=== PATIENT | male | born 1945 | race Caucasian/White ===

== ENCOUNTER 2017-03-14 00:46 | Emergency (ER) | payer OTHER ==
[2017-03-14 00:57] VITALS: BP 109/51; BMI 23.7
--- NOTE | 2017-03-14 01:58 | DR.GENAD ---
HPI - PCP Primary Care Physician: Nico - Complaint/Symptoms Chief Complaint:: "The swelling comes and goes. Usually when he goes to bed it will go away by the next day. This time it hasn't went down though. He also had a fluid pocket around his penis earlier. He hasn't peed all day as well. We took a half a lasix but it didn't seem to help." Via Self Treatment fo Chief Complaint: 10 of lasix - states that any more will drop his blood pressure too much. - Nurses notes reviewed Nurses Notes Review: Yes - Source History Provided: Patient - Mode of Arrival Mode of Arrival: Ambulatory - Timing Onset of Chief Complaint: 03/13/17 Came on: Gradually - Duration Duration: Constant How lon Duration: Days - Location Location: swelling of lower legs - Severity Severity: Moderate - Modifying Factors Worsens:: nothing Improves:: nothing PMH - PMH Past Medical History: Yes Past Medical History: Arthritis, CHF, COPD, Hypertension, [place] Past Surgical History: Yes Surgical History: Ortho Surgery, Other Past Surgical History Comment: Neck, both shoulders. Heart surgery - Family History History of Family Medical Conditions: Yes Family Medical History: Coronary Artery Disease - Social History Does patient currently use any type of tobacco product: No Have you used tobacco products in the last 12 months: No Type of Tobacco Use: None Does any household member use tobacco: No Alcohol Use: None Do you use any recreational Drugs:: No Lives With: Spouse Lives Where: Home - infectious screening In the last 2 months have you had wt loss of >10#?: NO Have you had fever, night sweats or hemotysis?: No Have you traveled outside the country in the last 6 months?: No Isolation: Standard ROS - Review of Systems Constitutional: No Symptoms Reported, Loss of Appetite Eyes: No Symptoms Reported ENTM: No Symptoms Reported Respiratoy: No Symptoms Reported Cardiovascular: No Symptoms Reported, Edema, Palpitations Gastrointestinal/Abdominal: No Symptoms Reported. negative: See HPI, Abdominal Pain, Constipation, Diarrhea, Nausea, Vomiting, Food Intolerance, Other Genitourinary: No Symptoms Reported Neurological: No Symptoms Reported, Weakness Musculoskeletal: No Symptoms Reported Integumentary: No Symptoms Reported Hematologic/Lymphatic: No Symptoms Reported Endocrine: No Symptoms Reported Psychiatric: No Symptoms Reported PE - Vital Signs Vitals: Temperature 97.7 F Pulse Rate 121 Respiratory Rate 18 Blood Pressure [Right Arm] 139/73 Blood Pressure 109/51 O2 Sat by Pulse Oximetry 89 - General Limitations: No Limitations General Appearance: Alert, In No Apparent Distress, In Distress (mild) - Head Head Exam: Normal Inspection, Atraumatic, Normocephalic - Eyes Eye exam: Normal Appearance, PERRL, EOMI. negative: Scleral Icterus, Conjunctival Injection, Nystagmus, Miosis, Mydrasis, Periorbital Swelling, Periorbital Tenderness, Other - ENT ENT Exam: Normal Exam, Normal Oropharynx, Normal External Ear Exam, Mucous Membranes Moist, TM's Normal Bilaterally External Ear Exam: Normal External Inspection TM/Canal Exam: Bilateral Normal Nose Exam: Normal Nose Exam Mouth Exam: Normal Inspection Throat Exam: Normal Inspection - Neck Neck Exam: Normal Inspection, Full ROM, Trachea Midline. negative: Tenderness, Meningismus, Lymphadenopathy, Thyromegaly, Other - Chest Chest Inspection: Normal Inspection, Symmetric Chest Wall Rise - Respiratory Respiratory Exam: Normal Lung Sounds Bilat Respiratory Exam: Bilateral Clear to Auscultation, Bilateral Decreased Breath Sounds - Cardiovascular Cardiovascular Exam: Regular Rate, Normal Rhythm, Irregular Rhythm, Normal Heart Sounds, Systolic Murmur - Abdominal Exam Abdominal Exam: Normal Inspection, Normal Bowel Sounds, Soft. negative: Distention, Tenderness, Guarding, Rebound, Rigidity, Dimnished Bowel Sounds, Hyperactive Bowel Sounds, Hypoactive Bowel Sounds, Organomegaly, Trauma, Incision, Ascites, Mass, Bruit, Pulsatile Mass, Hernia, Other Abdominal Tenderness: negative: RUQ, RLQ, LUQ, LLQ, Epigastrium, Suprapubic, Diffuse, Mild, Moderate, Severe, Other - Extremities Extremities Exam: Normal Inspection, Full ROM, Normal Capillary Refill, Edema (2 -3+ dependent edema). negative: Tenderness, Joint Swelling, Calf Tenderness, Other - Back Back Exam: Normal Inspection, Full ROM. negative: Tenderness, (R) CVA Tenderness, (L) CVA Tenderness, Muscle Spasm, Paraspinal Tenderness, Vertebral Tenderness, Rashes, (R) Sciatic Notch Tenderness, (L) Sciatic Notch Tendern, (R ) Straight Leg Raise, (L) Straight Leg Raise, Other - Neurologic Neurological Exam: Alert, Oriented X3, CN II-XII Intact, Normal Gait, Reflexes Normal - Psychiatric Psychiatric Exam: Normal Affect, Normal Mood. negative: Depressed, Agitated, Anxious, Flat Affect, Manic, Homicidal Ideation, Suicidal Ideation, Other - Skin Skin Exam: Warm, Dry, Intact, Normal Color Course - Reevaluation 1st: Improved ( and patient states they want to go home and continue Lasix they have and elevate feet. Daughter also wants to try home treatment. Refuse hospital admission presently.) - Education/Counseling Education/Counseling: Patient, Family Educated On: Treatment, Diagnosis, Prognosis, Needs for Follow Up (Patient and family decline hospital admission and states they want to go home) ROR - Labs Reviewed Laboratory Results Reviewed?: Yes (all labs and x-ray results reviewed and discussed with family and patient) Result Diagrams: 03/14/17 02:04 03/14/17 02:04 Laboratory: WBC 3.5 X10^3/uL (3.6-10.0) L 03/14/17 02:04 RBC 4.39 X10^6/uL (4.7-6.0) L 03/14/17 02:04 Hgb 13.7 g/dL (13.5-18.0) 03/14/17 02:04 Hct 41.1 % (42.0-54.0) L 03/14/17 02:04 MCV 93.6 fL (80.0-100.0) 03/14/17 02:04 MCH 31.1 pg (27.0-34.0) 03/14/17 02:04 MCHC 33.3 g/dL (33.0-35.0) 03/14/17 02:04 RDW 17.1 % (11.6-16.5) H 03/14/17 02:04 Plt Count 88 X10^3/uL (150.0-450.0) L 03/14/17 02:04 MPV 9.9 fL (7.4-11.0) 03/14/17 02:04 Neut % 58.9 % (42.0-75.0) 03/14/17 02:04 Lymph % 25.3 % (21.0-51.0) 03/14/17 02:04 H[place]go % 12.2 % (0.0-13.0) 03/14/17 02:04 Eos % 3.5 % (0.9-2.9) H 03/14/17 02:04 Baso % 0.1 % (0.2-1.0) L 03/14/17 02:04 Neut # 2.1 x10^3/uL (2.2-4.8) L 03/14/17 02:04 Lymph # 0.9 X10^3/uL (1.3-2.9) L 03/14/17 02:04 H[place]go # 0.4 x10^3/uL (0.3-0.8) 03/14/17 02:04 Eos # 0.1 x10^3/uL (0.0-0.2) 03/14/17 02:04 Baso # 0.0 X10^3/uL (0.0-0.1) 03/14/17 02:04 Absolute Nucleated RBC 0.1 /100WBC 03/14/17 02:04 INR Target Range - 03/14/17 02:04 INR 2.37 (0.8-1.3) H 03/14/17 02:04 PTT 42.1 SECONDS (22.9-36.5) H 03/14/17 02:04 PTT Comment - 03/14/17 02:04 Sodium 138 mmol/L (136-145) 03/14/17 02:04 Corrected Sodium TNP 03/14/17 02:04 Potassium 4.0 mmol/L (3.5-5.1) 03/14/17 02:04 Chloride 100 mmol/L (98-107) 03/14/17 02:04 Carbon Dioxide 39.7 mmol/L (21-32) H 03/14/17 02:04 BUN 8 mg/dL (7-18) 03/14/17 02:04 Creatinine 1.09 mg/dL (0.70-1.30) 03/14/17 02:04 Est GFR (MDRD) Af Amer > 60 (>60) 03/14/17 02:04 Est GFR (MDRD) Non-Af > 60 (>60) 03/14/17 02:04 Glucose 96 mg/dL (65-99) 03/14/17 02:04 Calcium 8.6 mg/dL (8.5-10.1) 03/14/17 02:04 Corrected Calcium 9.2 mg/dL (8.5-10.1) 03/14/17 02:04 Magnesium 1.8 mg/dL (1.7-2.9) 03/14/17 02:04 Total Bilirubin 1.20 mg/dL (0.2-1.0) H 03/14/17 02:04 AST 18 Units/L (15-37) 03/14/17 02:04 ALT 12 Units/L (12-78) 03/14/17 02:04 Alkaline Phosphatase 79 Units/L (46-116) 03/14/17 02:04 Creatine Kinase 67 Units/L (39-308) 03/14/17 02:04 CK-MB (CK-2) < 1.0 ng/mL (0-4.0) 03/14/17 02:04 CK/CKMB % Calc 1.5 % (<4) 03/14/17 02:04 Troponin I 0.06 ng/mL (0-1.5) 03/14/17 02:04 B-Natriuretic Peptide 202 pg/mL (0-79) H 03/14/17 02:04 Total Protein 7.2 g/dL (6.4-8.2) 03/14/17 02:04 Albumin 3.3 g/dL (3.4-5.0) L 03/14/17 02:04 Globulin 3.9 g/dL (2.5-4.5) 03/14/17 02:04 Albumin/Globulin Ratio 0.8 Ratio (1.1-2.1) L 03/14/17 02:04 - XRAY XRAY Interpreted by: Radiologist (Chest: Findings of congestive heart failure. There is cardiomegaly, central vascular congestion and interstitial edema) - Diagnosis Discharge Problem: Pulmonary edema, History of chronic atrial fibrillation Congestive heart failure (CHF) Qualifiers: Congestive heart failure type: unspecified congestive heart failure type - Discharge Plan Disposition: 01 HOME, SELF-CARE Condition: Stable - Follow ups/Referrals Follow ups/Referrals: SOPHIA PATTEN [Primary Care Provider] - 3 days - Instructions Instructions: Heart Failure, [id number], Atrial Fibrillation, [id number], Pulmonary Edema, [id number]
[2017-03-14] MEDS ORDERED: ZAROXOYLN PO STA (01:59)
[2017-03-14 02:18] LABS: BASOPHILS % (AUTO) 0.1 % (0.2-1.0); EOSINOPHILS # (AUTO) 0.1 x10^3/uL (0.0-0.2); EOSINOPHILS % (AUTO) 3.5 % (0.9-2.9); HEMATOCRIT 41.1 % (42.0-54.0); HEMOGLOBIN 13.7 g/dL (13.5-18.0); LYMPHOCYTES # (AUTO) 0.9 X10^3/uL (1.3-2.9); LYMPHOCYTES % (AUTO) 25.3 % (21.0-51.0); MEAN CORPUSCULAR HEMOGLOBIN 31.1 pg (27.0-34.0); MEAN CORPUSCULAR HGB CONC 33.3 g/dL (33.0-35.0); MEAN CORPUSCULAR VOLUME 93.6 fL (80.0-100.0); MEAN PLATELET VOLUME 9.9 fL (7.4-11.0); MONOCYTES # (AUTO) 0.4 x10^3/uL (0.3-0.8); MONOCYTES % (AUTO) 12.2 % (0.0-13.0); NEUTROPHILS # (AUTO) 2.1 x10^3/uL (2.2-4.8); NEUTROPHILS % (AUTO) 58.9 % (42.0-75.0); PLATELET COUNT 88 X10^3/uL (150.0-450.0); RED BLOOD COUNT 4.39 X10^6/uL (4.7-6.0); RED CELL DISTRIBUTION WIDTH 17.1 % (11.6-16.5); WHITE BLOOD COUNT 3.5 X10^3/uL (3.6-10.0)
[2017-03-14 02:36] LABS: B-TYPE NATRIURETIC PEPTIDE 202 pg/mL (0-79)
[2017-03-14] MEDS ORDERED: LASIX PO STA (02:37)
[2017-03-14] MEDS ORDERED: LASIX ONE (02:40)
[2017-03-14 02:44] LABS: BLOOD UREA NITROGEN 8 mg/dL (7-18); CALCIUM 8.6 mg/dL (8.5-10.1); CARBON DIOXIDE 39.7 mmol/L (21-32); CHLORIDE 100 mmol/L (98-107); CREATININE 1.09 mg/dL (0.70-1.30); SODIUM 138 mmol/L (136-145); TROPONIN I 0.06 ng/mL (0-1.5); eGFR BLACK RACES > 60 (>60); eGFR NON BLACK RACES > 60 (>60)
[2017-03-14 02:48] LABS: ALANINE AMINOTRANSFERASE 12 Units/L (12-78); ALKALINE PHOSPHATASE 79 Units/L (46-116); ASPARTATE AMINO TRANSFERASE 18 Units/L (15-37); CKMB % 1.5 % (<4); CREATINE KINASE 67 Units/L (39-308); CREATINE KINASE MB < 1.0 ng/mL (0-4.0); TOTAL PROTEIN 7.2 g/dL (6.4-8.2)
[2017-03-14 02:53] LABS: ALBUMIN 3.3 g/dL (3.4-5.0); COR CA(FOR HYPOALB) 9.2 mg/dL (8.5-10.1); MAGNESIUM 1.8 mg/dL (1.7-2.9)
--- NOTE | 2017-03-14 03:14 | RAD ---
EXAM: Chest X-ray INDICATION: Shortness of breath COMPARISION: Prior exam from September 25, 2015 TECHNIQUE: Single view FINDINGS: The heart is severely enlarged and there is central vascular congestion. The interstitial markings ar e prominent bilaterally. No pneumothorax or pleural effusion. No focal lung parenchymal consolidation identified. The regional skeleton is intact. There is a left-sided defibrillator. IMPRESSION: Findings are most characteristic of changes associated congestive heart failure. There is cardiomegal y, central vascular congestion, and interstitial edema. Reported By:
== END 2017-03-14 04:20 | disposition home or self-care (01) ==
LOC: ER 00:46
DX: I50.9 Heart failure, unspecified (principal); J81.1 Chronic pulmonary edema; I48.2 Chronic atrial fibrillation; I51.7 Cardiomegaly
CPT/HCPCS: 36415; 71010; 80053; 82550; 82553; 83735; 83880; 84484; 85025; 85610; 85730; 93005; 93010; 99283

== ENCOUNTER 2017-03-30 12:31 | Emergency (ER) | payer OTHER ==
[2017-03-30 12:36] VITALS: BMI 29.8
--- NOTE | 2017-03-30 13:07 | RAD ---
History: Shortness of breath Study: Portable AP chest. Comparison: March 14 Findings: There is unchanged moderate cardiomegaly with intact pacemaker wire leads from the left sub clavian vein. There is moderately severe vascular congestion. The costophrenic angles are blunted. Impression: Unchanged cardiomegaly and congestive heart failure Reported By:
[2017-03-30 13:26] LABS: BASOPHILS % (AUTO) 0.6 % (0.2-1.0); EOSINOPHILS % (AUTO) 0.2 % (0.9-2.9); HEMATOCRIT 44.6 % (42.0-54.0); LYMPHOCYTES # (AUTO) 0.6 X10^3/uL (1.3-2.9); LYMPHOCYTES % (AUTO) 11.6 % (21.0-51.0); MEAN CORPUSCULAR HEMOGLOBIN 31.6 pg (27.0-34.0); MEAN CORPUSCULAR HGB CONC 33.7 g/dL (33.0-35.0); MEAN CORPUSCULAR VOLUME 93.9 fL (80.0-100.0); MONOCYTES # (AUTO) 0.4 x10^3/uL (0.3-0.8); MONOCYTES % (AUTO) 7.8 % (0.0-13.0); NEUTROPHILS # (AUTO) 3.9 x10^3/uL (2.2-4.8); NEUTROPHILS % (AUTO) 79.8 % (42.0-75.0); PLATELET COUNT 97 X10^3/uL (150.0-450.0); RED BLOOD COUNT 4.75 X10^6/uL (4.7-6.0); RED CELL DISTRIBUTION WIDTH 17.2 % (11.6-16.5); WHITE BLOOD COUNT 4.9 X10^3/uL (3.6-10.0)
[2017-03-30] MEDS ORDERED: COREG TAB 3.125 MG PO STA ×2 (13:32→13:44)
--- NOTE | 2017-03-30 13:32 | DR.GENAD ---
HPI - PCP Primary Care Physician: maxx - Complaint/Symptoms Chief Complaint Doctors Comments: Patient with a history of AFib he was started on started on cardiediolol 3.125mg on yesterday but too half of the dose and not at all today. He presents with nausea and vomiting. His MD wanted him to take one tablet but instead took half. He saw his physician on yesterday. 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 He presented with HR 105-125 in AFib. He stopped taking his anticoagulant one day aog. Chief Complaint:: patient stated he has been vomiting and very nauseated since yesterday when he left his doctors office. - Source History Provided: Patient - Mode of Arrival Mode of Arrival: Ambulatory - Timing Onset of Chief Complaint: 03/30/17 PMH - PMH Past Medical History: Yes Past Medical History: Arthritis, CHF, COPD, Hypertension, [place] Past Surgical History: Yes Surgical History: Ortho Surgery, Other - Family History History of Family Medical Conditions: Yes Family Medical History: Coronary Artery Disease - Social History Does patient currently use any type of tobacco product: No Have you used tobacco products in the last 12 months: No Type of Tobacco Use: None Does any household member use tobacco: No Alcohol Use: None Do you use any recreational Drugs:: No Lives With: Family Lives Where: Home - infectious screening In the last 2 months have you had wt loss of >10#?: NO Have you had fever, night sweats or hemotysis?: No Have you traveled outside the country in the last 6 months?: No Isolation: Standard ROS - Review of Systems Eyes: No Symptoms Reported ENTM: No Symptoms Reported Respiratoy: No Symptoms Reported Cardiovascular: Other (tachycardia, AFib) Gastrointestinal/Abdominal: No Symptoms Reported Genitourinary: No Symptoms Reported Neurological: No Symptoms Reported Musculoskeletal: No Symptoms Reported Integumentary: No Symptoms Reported Hematologic/Lymphatic: No Symptoms Reported Endocrine: No Symptoms Reported Psychiatric: No Symptoms Reported All Other Systems: Reviewed and Negative PE - Vital Signs Vitals: Temperature 98.6 F Pulse Rate 110 Respiratory Rate 16 Blood Pressure [Right Arm] 139/73 Blood Pressure 140/84 O2 Sat by Pulse Oximetry 94 - General Limitations: No Limitations General Appearance: Alert, In No Apparent Distress - Head Head Exam: Normal Inspection, Atraumatic - Eyes Eye exam: Normal Appearance, PERRL, EOMI - Neck Neck Exam: Normal Inspection, Full ROM - Chest Chest Inspection: Normal Inspection, Symmetric Chest Wall Rise - Respiratory Respiratory Exam: Normal Lung Sounds Bilat Respiratory Exam: Bilateral Clear to Auscultation - Cardiovascular Cardiovascular Exam: Tachycardia - Abdominal Exam Abdominal Exam: Normal Inspection, Normal Bowel Sounds Abdominal Tenderness: negative: RUQ, RLQ, LUQ, LLQ, Epigastrium, Suprapubic, Diffuse, Mild, Moderate, Severe, Other - Extremities Extremities Exam: Normal Inspection - Back Back Exam: Normal Inspection, Full ROM - Neurologic Neurological Exam: Alert, Oriented X3, CN II-XII Intact - Psychiatric Psychiatric Exam: Normal Affect - Skin Skin Exam: Warm, Dry, Intact Course - Treatment Treatment: carvediolol 3.125mg, - Reevaluation 1st: Improved ROR - Labs Reviewed Laboratory Results Reviewed?: Yes (D Dimer [id number]) Result Diagrams: 03/30/17 13:15 03/30/17 13:15 Laboratory: WBC 4.9 X10^3/uL (3.6-10.0) 03/30/17 13:15 RBC 4.75 X10^6/uL (4.7-6.0) 03/30/17 13:15 Hgb 15.0 g/dL (13.5-18.0) 03/30/17 13:15 Hct 44.6 % (42.0-54.0) 03/30/17 13:15 MCV 93.9 fL (80.0-100.0) 03/30/17 13:15 MCH 31.6 pg (27.0-34.0) 03/30/17 13:15 MCHC 33.7 g/dL (33.0-35.0) 03/30/17 13:15 RDW 17.2 % (11.6-16.5) H 03/30/17 13:15 Plt Count 97 X10^3/uL (150.0-450.0) L 03/30/17 13:15 MPV 10.0 fL (7.4-11.0) 03/30/17 13:15 Neut % 79.8 % (42.0-75.0) H 03/30/17 13:15 Lymph % 11.6 % (21.0-51.0) L 03/30/17 13:15 Yancey % 7.8 % (0.0-13.0) 03/30/17 13:15 Eos % 0.2 % (0.9-2.9) L 03/30/17 13:15 Baso % 0.6 % (0.2-1.0) 03/30/17 13:15 Neut # 3.9 x10^3/uL (2.2-4.8) 03/30/17 13:15 Lymph # 0.6 X10^3/uL (1.3-2.9) L 03/30/17 13:15 Yancey # 0.4 x10^3/uL (0.3-0.8) 03/30/17 13:15 Eos # 0.0 x10^3/uL (0.0-0.2) 03/30/17 13:15 Baso # 0.0 X10^3/uL (0.0-0.1) 03/30/17 13:15 Absolute Nucleated RBC 0.2 /100WBC 03/30/17 13:15 INR Target Range - 03/30/17 13:15 INR 4.13 (0.8-1.3) H 03/30/17 13:15 PTT 42.7 SECONDS (22.9-36.5) H 03/30/17 13:15 PTT Comment - 03/30/17 13:15 D-Dimer 2400 ng/mL (0-400) H* 03/30/17 13:15 Sodium 136 mmol/L (136-145) 03/30/17 13:15 Corrected Sodium TNP 03/30/17 13:15 Potassium 4.3 mmol/L (3.5-5.1) 03/30/17 13:15 Chloride 95 mmol/L (98-107) L 03/30/17 13:15 Carbon Dioxide 36.9 mmol/L (21-32) H 03/30/17 13:15 BUN 12 mg/dL (7-18) 03/30/17 13:15 Creatinine 1.32 mg/dL (0.70-1.30) H 03/30/17 13:15 Est GFR (MDRD) Af Amer > 60 (>60) 03/30/17 13:15 Est GFR (MDRD) Non-Af 57 (>60) L 03/30/17 13:15 Glucose 90 mg/dL (65-99) 03/30/17 13:15 Calcium 9.5 mg/dL (8.5-10.1) 03/30/17 13:15 Corrected Calcium TNP 03/30/17 13:15 Magnesium 1.7 mg/dL (1.7-2.9) 03/30/17 13:15 Total Bilirubin 3.10 mg/dL (0.2-1.0) H 03/30/17 13:15 AST 121 Units/L (15-37) H 03/30/17 13:15 ALT 65 Units/L (12-78) 03/30/17 13:15 Alkaline Phosphatase 72 Units/L (46-116) 03/30/17 13:15 Creatine Kinase 94 Units/L (39-308) 03/30/17 13:15 CK-MB (CK-2) 1.5 ng/mL (0-4.0) 03/30/17 13:15 CK/CKMB % Calc 1.6 % (<4) 03/30/17 13:15 Troponin I 0.14 ng/mL (0-1.5) 03/30/17 13:15 Total Protein 7.7 g/dL (6.4-8.2) 03/30/17 13:15 Albumin 3.7 g/dL (3.4-5.0) 03/30/17 13:15 Globulin 4.0 g/dL (2.5-4.5) 03/30/17 13:15 Albumin/Globulin Ratio 0.9 Ratio (1.1-2.1) L 03/30/17 13:15 - XRAY XRAY Interpreted by: Radiologist (CTA chest: Moderate cardiomegaly with fairly pulmonary arterial dilatation and right ventricular heart strain consistent with pulmonary arterial hypertension, increased peribronchial thickening affecting the right middle lobe, right lower lobe, left lower lobe and lingula likely represents infectious infiltrates hower at asymmetric pulmonary interstial edema is also a consideration.. Moderate COPD with assoicated reticulation, honeycombing and fibrosis with traction bronchiectasis within both lung bases most severly affecting the right lower lobe. Moderate amout of abdominal free fluid.) - Diagnosis Discharge Problem: Chronic atrial fibrillation, Cardiomegaly Pneumonia Qualifiers: Pneumonia type: due to unspecified organism Laterality: left Lung location: unspecified part of lung Qualified Code(s): J18.9 - Pneumonia, unspecified organism - Discharge Plan Condition: Stable - Follow ups/Referrals Follow ups/Referrals: SOPHIA PATTEN [Primary Care Provider] - 3 days - Instructions
[2017-03-30] MEDS ORDERED: LASIX IVP ONE ×2 (13:34→13:36)
[2017-03-30] MEDS ORDERED: ZOFRAN INJ 4 MG VIAL IVP ONE (13:38)
[2017-03-30] MEDS ORDERED: ZOFRAN INJ 4 MG VIAL ONE (13:40)
[2017-03-30 13:41] LABS: BLOOD UREA NITROGEN 12 mg/dL (7-18); CALCIUM 9.5 mg/dL (8.5-10.1); CARBON DIOXIDE 36.9 mmol/L (21-32); CHLORIDE 95 mmol/L (98-107); CREATININE 1.32 mg/dL (0.70-1.30); SODIUM 136 mmol/L (136-145); TROPONIN I 0.14 ng/mL (0-1.5); eGFR BLACK RACES > 60 (>60); eGFR NON BLACK RACES 57 (>60)
[2017-03-30 13:45] LABS: ALANINE AMINOTRANSFERASE 65 Units/L (12-78); ALBUMIN 3.7 g/dL (3.4-5.0); ALKALINE PHOSPHATASE 72 Units/L (46-116); ASPARTATE AMINO TRANSFERASE 121 Units/L (15-37); CKMB % 1.6 % (<4); CREATINE KINASE 94 Units/L (39-308); CREATINE KINASE MB 1.5 ng/mL (0-4.0); MAGNESIUM 1.7 mg/dL (1.7-2.9); TOTAL PROTEIN 7.7 g/dL (6.4-8.2)
[2017-03-30] MEDS ORDERED: COREG TAB 3.125 MG PO ONE (14:08)
[2017-03-30] MEDS ORDERED: NS 100 ML IV 100 ML IV ONE (14:20)
--- NOTE | 2017-03-30 15:33 | CT ---
CTA chest with contrast per pulmonary embolism protocol Indication: nausea with elevated D-dimer Comparison: Chest radiograph performed earlier on same day Technique: Multiple axial images of the chest were obtained from the thoracic inlet to the upper abdo men after the administration of IV contrast.Coronal and Sagittal MIP images were also provided. Radiation dose reduction techniques were performed utilizing adjustment for MA/kVP based on patient body size. Findings: The pulmonary artery is mildly dilated, there is no filling defect identified within the segmental or proximal pulmonary arteries to suggest pulmonary thromboembolism. Motion artifact slightly limits ev aluation of the subsegmental branches of the pulmonary arteries. The heart is enlarged without perica rdial effusion. There is dilatation of the right atrium and ventricle. No enlarged mediastinal or hil ar lymphadenopathy. Thoracic aorta is normal in caliber with scattered calcified atherosclerotic dise ase. Bilateral small pleural effusions. There is centrilobular paraseptal emphysematous change. There is also honeycombing and fibrotic change within both lower lobes, however primarily involving the ri ght lower lobe. Peribronchial consolidation within the right middle and lower lobes and left upper lo be and lingula have imaging findings suggesting bronchopneumonia in the setting of traction bronchiec tasis. There is no definite interlobular septal thickening. No pneumothorax. Imaging of the upper abd omen demonstrates moderate amount of abdominal free fluid. Cyst is noted within upper pole the right kidney. Gallbladder wall edema is noted without cholelithiasis. Review of bone windows demonstrates n o acute osseous abnormality. Impression: 1.Moderate cardiomegaly with fairly pulmonary arterial dilatation and right ventricular heart strain consistent with pulmonary arterial hypertension. Increased peribronchial thickening affecting the rig ht middle lobe, right lower lobe, left lower lobe and lingula likely represents infectious infiltrate s however at asymmetric pulmonary interstitial edema is also a consideration. 2. Moderate COPD with associated reticulation, honeycombing and fibrosis with traction bronchiectasis within both lung bases most severely affecting the right lower lobe. 3. Moderate amount of abdominal free fluid. 4. There is suboptimal visualization of the subsegmental branches of the pulmonary arteries. There is no filling defect identified within the main or segmental branches of the pulmonary arteries. Reported By:
[2017-03-30 16:43] VITALS: BP 129/76
== END 2017-03-30 16:49 | disposition home or self-care (01) ==
LOC: ER 12:47
DX: J18.9 Pneumonia, unspecified organism (principal); I48.91 Unspecified atrial fibrillation; I51.7 Cardiomegaly
CPT/HCPCS: 36415; 71010; 71275; 80053; 82550; 82553; 83735; 84484; 85025; 85378; 85610; 85730; 93005; 93010; 96365; 96367; 96374; 96375; 99283; A4222; J1940; J2405